=== PATIENT | female | born 1995 | race Caucasian/White ===

== ENCOUNTER 2016-11-15 08:20 | Emergency (ER) | payer BC ==
[2016-11-15] MEDS ORDERED: Sodium Chloride 0.9% 1,000 ML IV ONE (08:33)
[2016-11-15 08:37] LABS: % BASOPHILS 0.7 % (0.0-2.0); % EOSINOPHILS 0.7 % (0.0-5.0); % LYMPHOCYTES 28.1 % (20.0-50.0); % NEUTROPHILS 64.5 % (40.0-80.0); HEMATOCRIT 30.9 % (35.0-45.0); HEMOGLOBIN 10.2 gm/dL (11.7-15.5); MEAN CELL VOLUME 72.8 fl (81-100); MEAN CORPUSCULAR HGB CONC 32.9 pg (28.0-36.0); PLATELET COUNT 220 Th/cmm (150-400); RED BLOOD COUNT 4.24 Mil/cmm (3.80-5.10); RED CELL DISTRIBUTION WIDTH 20.7 % (11.5-20.0); WHITE BLOOD COUNT 6.1 Th/cmm (4.8-10.8)
--- NOTE | 2016-11-15 08:42 | ED Physician Chart ---
Chief Complaint/HPI - Patient Information Date Seen:: 11/15/16 Time Seen:: 08:31 Chief Complaint:: ABDOMINAL PAIN History of Present Illness:: THIS IS A 21 YO FEMALE WHO IS 11 WEEKS WITH THE ONSET OF EPIGASTRIC PAIN, NAUSEA AND VOMITING WITHOUT FEVER. SHE STATES THAT SHE HAS HAD A PELVIC ULTRASOUND AND THE FETUS IS IN THE UTERUS. SHE ALSO STATES THAT SHE HAS HAD MORNING SICKNESS WITH LOTS OF VOMITING. SHE DENIES VAGINAL BLEEDING AND SHE DENIES URINARY TRACT INFECTIONS. Allergies:: Allergies Allergy/AdvReac Type Severity Reaction Status Date / Time No Known Allergies Allergy Verified 11/15/16 08:26 Vitals:: Vital Signs - 8 hr 11/15/16 08:30 Temp 98.0 F HR 97 RR 22 BP 114/65 O2 Sat % 100 Historian:: Patient, Family Member Review:: Nurse's Note Reviewed Review of Systems - Review of Systems General/Constitutional: No fever, No chills, Weight loss, No weakness, No diaphoresis, No edema, No loss of appetite Skin: No skin lesions, No rash, No bruising Head: No headache, No light-headedness Eyes: No loss of vision, No pain, No diplopia ENT: No earache, No nasal drainage, No sore throat, No tinnitus Neck: No neck pain, No swelling, No thyromegaly, No stiffness, No mass noted Cardio Vascular: No chest pain, No palpitations, No PND, No orthopnea, No edema Pulmonary: No SOB, No cough, No sputum, No wheezing GI: Nausea, Vomiting, No diarrhea, Pain, No melena, No hematochezia, No constipation, No hematemesis G/U: No dysuria, No frequency, No hematuria Musculoskeletal: No bone or joint pain, No back pain, No muscle pain Endocrine: No polyuria, No polydipsia Psychiatric: No prior psych history, No depression, No anxiety, No suicidal ideation Hematopoietic: No bruising, No lymphadenopathy Allergic/Immuno: No urticaria, No angioedema Neurological: No syncope, No focal symptoms, No weakness, No paresthesia, No headache, No seizure, No dizziness, No confusion, No vertigo Past Medical History - Past Medical History Obtainable: Yes Past Medical History: Other (HYPEREMESIS GRAVIDARIUM) Family Medical History - Family Member Mother Ethnicity: Living Status: Still Living Hx Family Cancer: No Hx Family Coronary Artery Disease: No Hx Family Congestive Heart Failure: No Hx Family Hypertension: No Hx Family Stroke: No Hx Family Diabetes: No Hx Family Seizures: No Hx Family Dementia: No Hx Family AIDS: No Hx Family HIV: No Hx Family COPD: No Hx Family Hepatitis: No Hx Family Psychiatric Problems: No Hx Family Tuberculosis: No Physical Exam - Physical Examination General/Constitutional: Awake, Well-developed, well-nourished, Alert, No distress, GCS 15, Non-toxic appearing, Ambulatory Head: Atraumatic Eyes: Lids, conjuctiva normal, PERRL, EOMI Skin: Nl inspection, No rash, No skin lesions, No ecchymosis, Well hydrated, No lymphadenopathy ENMT: External ears, nose nl, Nasal exam nl, Lips, teeth, gums nl Neck: Nontender, Full ROM w/o pain, No JVD, No nuchal rigidity, No bruit, No mass, No stridor Respiratory: Nl effort/Exclusion, Clear to Auscultation, No Wheeze/Rhonchi/Rales Cardio Vascular: RRR, No murmur, gallop, rubs, NL S1 S2 GI: No organomegaly, No hernia, Normal BS's, Nondistended, No mass/bruits, No McBurney tenderness Other GI comments:: TENDERNESS IN THE EPIGASTRIC AREA : No CVA tenderness Extremities: No tenderness or effusion, Full ROM, normal strength in all extremities, No edema, Normal digits & nails Neuro/Psych: Alert/oriented, DTR's symmetric, Normal sensory exam, Normal motor strength, Judgement/insight normal, Mood normal, Normal gait, No focal deficits Misc: normal gait, Normal back, No paraspinal tenderness Labs/Radiology/EKG Results - Lab Results Results: Abnormal Lab Results 11/15/16 11/15/16 11/15/16 08:30 08:30 08:30 WBC 6.1 RBC 4.24 Hgb 10.2 L Hct 30.9 L MCV 72.8 L MCH 24.0 L MCHC Differential 32.9 RDW 20.7 H Plt Count 220 MPV 8.0 Neutrophils % 64.5 Lymphocytes % 28.1 Monocytes % 6.0 Eosinophils % 0.7 Basophils % 0.7 Sodium 133 L Potassium 3.8 Chloride 104 Carbon Dioxide 21.5 Anion Gap 11.3 BUN 8 Creatinine 0.5 L Est GFR ( Amer) > 60.0 Est GFR (Non-Af Amer) > 60.0 BUN/Creatinine Ratio 16.0 Glucose 90 Calcium 9.8 Total Bilirubin 0.3 AST 17 ALT 14 Alkaline Phosphatase 53 Total Protein 7.6 Albumin 4.1 Globulin 3.5 Albumin/Globulin Ratio 1.2 Beta HCG, Quant [id number] - Radiology Results Results: ULTRASOUND OF THE ABDOMEN = NEG FOR GALLSTONES PELVIC ULTRASOUND = IUP SEEN AND NORMAL Assessment - Assessment General Assessment: GALLSTONES URINARY TRACT INFECTION EARLY ED Septic Shock - . Is Septic Shock (SBP<90, OR Lactate>4 mmol\L) present?: No - <6hrs of presentation: Vital Signs: Vital Signs - 8 hr 11/15/16 08:30 Temp 98.0 F HR 97 RR 22 BP 114/65 O2 Sat % 100 Reassessment (Disposition) - Reassessment Reassessment Condition:: Improved - Diagnosis Diagnosis:: GALLSTONES URINARY TRACT INFECTION EARLY - Aftercare/Follow up Instructions Aftercare/Follow-Up Instructions:: Counseled pt regarding lab results/diagnosis & need follow up, Refer to Discharge Instructions, Counseled pt & family regarding lab results/diagnosis & need follow up - Patient Disposition Discharge/Transfer:: Home Condition at Disposition:: Improved ED Discharge Plan - Patient Disposition Admit/Discharge/Transfer: PT DISCHARGED HOME Condition at Disposition: Improved
[2016-11-15 08:58] LABS: ALB/GLOB RATIO 1.2 (1.0-1.8); ALKALINE PHOSPHATASE 53 U/L (34-104); ANION GAP 11.3 (7.0-16.0); BILIRUBIN,TOTAL 0.3 mg/dL (0.3-1.0); BUN - UREA NITROGEN 8 mg/dL (7-25); CALCIUM SERUM 9.8 mg/dL (8.6-10.3); CARBON DIOXIDE 21.5 mEq/L (21.0-31.0); CHLORIDE 104 mEq/L (98-107); CREATININE - SERUM 0.5 mg/dL (0.6-1.2); GLUCOSE 90 mg/dL (70-105); POTASSIUM SERUM 3.8 mEq/L (3.5-5.1); SGOT 17 U/L (13-39); SGPT/ALT 14 U/L (7-52); SODIUM SERUM 133 mEq/L (136-145)
[2016-11-15 10:14] LABS: URINE BILIRUBIN NEGATIVE (NEGATIVE); URINE BLOOD NEGATIVE (NEGATIVE); URINE GLUCOSE (UA) NEGATIVE (NEGATIVE); URINE KETONE NEGATIVE (NEGATIVE); URINE PH 6.5 (4.6 - 8.0); URINE PROTEIN NEGATIVE (NEGATIVE); URINE UROBILINOGEN 0.2 E.U./dL (0.2 - 1.0)
[2016-11-15 10:20] LABS: URINE BACTERIA FEW /hpf (NONE SEEN); URINE COLOR YELLOW; URINE EPITHELIAL CELLS FEW /lpf (FEW); URINE RBC 0-2 /hpf (0-5)
--- NOTE | 2016-11-15 11:21 | Diagnostic Imaging Report ---
OB ultrasound (Limited) HISTORY: Pain The exam demonstrates a single relatively early intrauterine gestation with a variable lie. motion and cardiac activity are noted (162 BPM). Harviell-rump length equals 4.7 cm. This is consistent with a sonographic age of 11 weeks 3 days +/- 1 week. anatomic evaluation precluded at this time due to the small size and early age. Amniotic fluid volume is normal. The early placenta is over the cervix this time (placenta previa). IMPRESSION: 1. Single intrauterine gestation with approximate age of 11 weeks 3 days +/- 1 week 2. Early placenta situated over the cervix at this time (placenta previa)
--- NOTE | 2016-11-15 11:49 | Diagnostic Imaging Report ---
Abdominal ultrasound (Limited), gallbladder region HISTORY: Pain Limited sonographic images obtained over the right upper quadrant in the area of the gallbladder. The exam of the gallbladder demonstrates a nonmobile 1.1 x 0.4 cm intraluminal echogenic density along the posterior wall. No clean acoustic shadowing. Findings may be associated with a cholesterol polyp or possibly an adherent atypical calculus. No biliary dilatation (common bile duct is 3 mm). No a adherent calculus cannot be excluded. No abnormality seen in the region of the pancreas. IMPRESSION: 1. Nonmobile intraluminal echogenic density within the gallbladder. Findings may be associated with a cholesterol polyp. Atypical calculus cannot be excluded.
== END 2016-11-15 11:00 | disposition home or self-care (01) ==
LOC: ER 08:20
DX: O23.41 Unspecified infection of urinary tract in pregnancy, first trimester (principal); O26.891 Other specified pregnancy related conditions, first trimester; O21.9 Vomiting of pregnancy, unspecified; K80.80 Other cholelithiasis without obstruction; Z3A.11 11 weeks gestation of pregnancy
CPT/HCPCS: 99285; 96374; 76705; 76801; 36415; 84702; 85025; 81001; 80053; J0696; J1885; J7030